=== PATIENT | male | born 1930 | race Caucasian/White ===

== ENCOUNTER → 2017-04-12 | Outpatient (CLI) | payer MEDICARE, BC ==
[~2017-04-12] MED LIST: ASPI81CH CHEW; FINA5TAB2 PO; ROSU20 PO; SYNT112T PO; TAMS5CAP PO; TEKT300T PO; VITA100064 PO; VITA500T4 PO
[2017-04-12 11:43] LABS: INTERNATIONAL NORMALIZED RATIO 0.9 RATIO; PROTHROMBIN TIME - PATIENT 10.4 SEC (9.8-11.6)
[2017-04-12 11:57] LABS: BICARBONATE 28.4 MEQ/L (21.0-32.0); POTASSIUM 4.7 MEQ/L (3.5-5.1)
[2017-04-12 13:02] LABS: BLOOD, URINE NEG (NEG); COMMENT (UR) CULT NOT INDICATED; CULTURE IF INDICATED CULT NOT INDICATED; GLUCOSE,URINE NEG (NEG); KETONE, URINE NEG (NEG); NITRITE,URINE NEG (NEG); URINE COLOR YELLOW (YELLW/STRAW)
== END ==
LOC: CPRE 10:07
PROVIDERS: ATTEND Orthopaedic Surgery
DX: Z01.810 Encounter for preprocedural cardiovascular examination (principal); Z01.811 Encounter for preprocedural respiratory examination; Z01.812 Encounter for preprocedural laboratory examination; S83.241D Other tear of medial meniscus, current injury, right knee, subsequent encounter; X58.XXXD Exposure to other specified factors, subsequent encounter
CPT/HCPCS: 36415; 80048; 81001; 85610

== ENCOUNTER → 2017-04-19 | Day surgery (SDC) | payer MEDICARE, BC ==
--- NOTE | 2017-04-11 12:25 | MH ---
cc: JOELTERRYVALDEMAR PARKER DATE OF ADMISSION: 04/19/2017 ADMITTING DIAGNOSES Medial meniscus tear of the right knee. Chondromalacia patellae right knee. Effusion right knee. Pain of the right knee. HISTORY The patient is an 86-year-old white male who presented to the office in February of this year complaining of bilateral knee pain of at least one months' duration. He had gotten up during the course of the night hours to use the bathroom and experienced a syncopal type episode resulting in him falling to the bathroom floor striking both knees against the edge of the toilet. He was able to arise thereafter and returned to bed. The following morning he was seen in the emergency room of [facility] where x-ray examination apparently was unremarkable for any acute bony abnormality. The patient was discharged home and shortly thereafter he experienced an episode of rectal bleeding for which she returned to the hospital and was admitted for further disposition. He underwent colonoscopy and was apparently diagnosed as having diverticulitis and did require several transfusions for his anemia. He was later seen by his primary care physician and at that time an MRI scan of both knees was completed and the patient was referred for orthopedic disposition. At the time of his initial office evaluation he described residual pain involving both knees being somewhat more pronounced on the right side. There had been no significant swelling or grinding-like sensation. He had been taking Aleve for pain management and had been accustomed to exercise activities which included lifting weights and walking. At the time of his original evaluation, a review of his MRI scan of the right knee demonstrated a horizontal tear involving the posterior horn and body of the medial meniscus with medial extrusion of a small portion of the meniscal structure. There was a bone contusion and subchondral posterior lateral tibial condyle fracture, small joint effusion and patellar chondromalacia. The MRI scan of his left knee did report an undersurface tear of the posterior horn and body of the medial meniscus and partial tearing of the medial retinaculum from the medial collateral ligament. Initial findings were reviewed and treatment options discussed. At that time the patient elected to continue with conservative management and was thereafter followed on an outpatient basis. He returned to the office in March reporting soreness involving both knees but definitely more pronounced about his right lower extremity. He tried to remain active during this interval of time but was aware of obvious limitations as related to his weightbearing routine. Once again findings and treatment options were reviewed. The pros and cons of continuing with conservative management versus operative intervention that would involve arthroscopic surgery were outlined in detail. Emphasis was made regarding the fact that the decision to proceed with surgery would be left entirely to the patient's discretion. The patient felt that his symptoms had progressed to a point in time where he was ready to proceed in this direction and in compliance with his wishes he is currently being admitted in order that arthroscopic surgery of his right knee be accomplished. PAST MEDICAL HISTORY, HOSPITALIZATIONS AND SURGERIES 1. Tonsillectomy. 2. Rotator cuff surgery of both shoulders. 3. Appendectomy. 4. Bilateral cataract excisions. 5. Colonoscopy. 6. Laparotomy with partial bowel resection for history of diverticulitis. 7. Cystoscopy. 8. Cardiac stent insertion. MEDICAL ILLNESSES 1. Hypertension. 2. elevated cholesterol. 3. Hypothyroidism. 4. Prostate disease. CURRENT MEDICATIONS 1. Lisinopril 20/12.5 daily. 2. Lovastatin 20 mg daily. 3. Levothyroxine 12.5 mg daily. 4. Finasteride 5 mg daily. 5. Tamsulosin 0.4 mg daily. 6. I-caps one daily. 7. Lutein daily. 8. One baby aspirin daily. 9. Vitamin D daily. 10. Vitamin B12 daily. ALLERGIES The patient denies any known drug allergies. 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 REVIEW OF SYSTEMS HEENT: He does wear glasses. Denies headache, seizure or syncope. Intermittent sinus congestion. No epistaxis. Diminished auditory acuity for which bilateral hearing aids are utilized. No tinnitus. No bleeding gums or dysphagia. RESPIRATORY: Denies cough, shortness of breath, upper respiratory infection, pneumonia or tuberculosis. No angina. CARDIOVASCULAR: He is medically managed for hypertension. GASTROINTESTINAL: His appetite is good. Bowel movements are regular. No hepatitis, gallbladder disease or ulcers. There is a positive history of hemorrhoids. GENITOURINARY: No urinary tract infection. No kidney stones. MUSCULOSKELETAL: Fractures of the left ankle and rib area treated nonoperatively. PSYCHIATRIC: No psychiatric illness. His remaining review of systems is unremarkable and noncontributory. FAMILY HISTORY The patient has been a for 7 years, his at 78 years of age with a history of pancreatic cancer. One son and one daughter both indicated to be in good health. One daughter 50 years of age secondary to illicit drug use. His family history is otherwise positive for heart disease, Alzheimer's disease and cancer. SOCIAL HISTORY The patient completed a high school education. 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 He denies active use of tobacco since 1963 but had been approximately a one-pack per day user for 14 years prior to that time. Ethanol consumption on social basis. PHYSICAL EXAMINATION VITAL SIGNS: Height 5 feet, 9 inches, weight 169 pounds. GENERAL: An alert, oriented and responsive 86-year-old white male who sits quietly upon the examination table in no obvious distress. HEAD, EYES, EARS, NOSE, AND THROAT: Pupils are equally round and reactive to light. Extraocular movements full. Sclerae clear. External nares clear. External auditory canals clear. Dental intact. Mucous membranes pink and moist. Pharynx clear. NECK: Supple. There is minimal discomfort at the extremes of motion indicated to be chronic in nature. Carotid pulse palpable bilaterally. Trachea midline. Thyroid without enlargement. LUNGS: Clear to auscultation and percussion. No CVA tenderness. No discomfort throughout the dorsolumbar spine. HEART: Grade 2/6 systolic murmur heard best at the right second intercostal space. ABDOMEN: Soft, nontender. Bowel sounds present. RECTAL: Per primary care physician. EXTREMITIES: Right Knee - There is a minimal fullness about the knee consistent with intraarticular effusion, medial joint line tenderness without palpable deformity. Apprehension and compression sign negative. Slight limitation of mobility at the extreme of flexion without significant crepitation associated. No collateral ligamentous instability. Sarah test and drawer sign negative. Pivot shift and Froy sign minimally positive for medial compartment pain. Straight-leg raising negative at 80 degrees. Independent gait. NEUROLOGIC: Cranial nerves II-XII grossly intact excluding diminished auditory acuity. IMPRESSION Medial meniscus tear of the right knee. Chondromalacia patellae right knee. Effusion right knee. Pain of the right knee PLAN Arthroscopic surgery and possible arthrotomy right knee. The nature of the planned surgical procedure, the potential complications and risks associated, the expectations of surgery and the consent form were thoroughly reviewed with the patient prior to his admission to the hospital. Mac has indicated his full understanding regarding all of the above and given consent to proceed with treatment as outlined. Medical evaluation and clearance for surgery will be completed by his primary care physician, Dr. Josh John. MD AMBROSE Braden/VINEET /11:24 AM /11:59 AM
[~2017-04-19] VITALS: Ht 175.3 cm; Wt 77.1 kg
[~2017-04-19] MED LIST changes: +ACETAMINOPHEN/HYDROcodone 325 MG/5 MG TAB PO PRN; +CHLORHEXIDINE GLUCONATE 2 % 1 PACK (2 CLOTHS) TOPICAL PRN; +DICLOFENAC SODIUM 37.5 MG/ML VIAL IV PUSH ONE; +DO NOT ADM ANY ANTICOAGULANT DRUGS PRN; +INSULIN HUMAN REGULAR 1,000 UNITS/10 ML VIAL SQ PRN; +LACTATED RINGER'S 1000 ML INJ 1,000 ML IV ONE; +LACTATED RINGER'S 1000 ML IV PRN; +LIDOCAINE HCL 2% 20 ML VIAL INFIL ONE; +METOPROLOL TARTRATE 25 MG TAB PO PRN; +MORPHINE SULFATE 8 MG/ML INJ IM PRN; +ONDANSETRON HCL 4 MG/2 ML VIAL IV PUSH ONE; +POVIDONE IODINE 5% (ANTISEPSIS KIT) 4 APPLICATIONS EACH NARE PRN; +POVIDONE IODINE 7.5% SCRUB 118 ML BOTTLE TOPICAL SCH; +PROMETHAZINE INJ 25 MG/ML VIAL IM PRN; +PROPOFOL 200 MG/20 ML AMP IV ONE; +SODIUM CHLORID 0.9% 500 ML IV PRN; +TRIAMCINOLONE ACETONIDE 40 MG/ML VIAL I-SYNOVIAL ONE; +ceFAZolin 2 GM PREMIX 50 ML IV SCH; +ceFAZolin 2 GM PREMIX 50 ML ONE; +ePHEDrine/NS 25 MG/5 ML SYR IV ONE
[2017-04-19 07:12] VITALS: BP 142/77; PULSE 60; RESP 16; TEMP 98.1; O2SAT 99
--- NOTE | 2017-04-19 07:18 | RADRPT ---
EXAM DATE/TIME: 04/19/2017 06:40 [facility] COMPARISON: No previous studies available for comparison. INDICATIONS : Preoperative chest X-ray. MEDICAL HISTORY : None. SURGICAL HISTORY : None. ENCOUNTER: Initial ACUITY: 1 day PAIN SCORE: 0/10 LOCATION: Bilateral chest FINDINGS: A single view of the chest demonstrates the lungs to be symmetrically aerated without evidence of mas s, infiltrate or effusion. The cardiomediastinal contours are unremarkable. Mild atherosclerotic ch anges are present in the aorta. Osseous structures are intact. CONCLUSION: No acute disease. Mitesh Neal MD on April 19, 2017 at 7:16 Board Certified Radiologist. This report was verified electronically.
[2017-04-19 11:25] VITALS: BP 116/65; PULSE 67; RESP 20; TEMP 97; O2SAT 97
--- NOTE | 2017-04-19 13:36 | MP ---
cc: VALDEMAR WAN M.D. DATE OF SURGERY 04/19/2017 PREOPERATIVE DIAGNOSIS Medial meniscus tear of the right knee, chondromalacia patellae right knee, effusion right knee and pain of the right knee. POSTOPERATIVE DIAGNOSIS Medial meniscus tear of the right knee, chondromalacia patellae right knee, effusion right knee and pain of the right knee including lateral meniscus tear of the right knee. PROCEDURE Partial medial and lateral meniscectomy of the right knee, chondroplasty patellofemoral joint. SURGEON Valdemar Wan MD ANESTHESIA General by LMA FORMAT Following the induction of satisfactory general anesthesia by LMA insertion as completed per the Department of Anesthesia, examination of the right knee revealed a satisfactory range of motion with no appreciable ligamentous instability. The extremity proper was positioned in the manager surgical knee palacios, prepped with Betadine solution and draped into a sterile field in the routine manner. Prior to initiation of the actual procedure, the standard time-out protocol was completed. All parameters were appropriately addressed and confirmed by operating room personnel. Arthroscopic instrumentation was introduced through a stab wound utilizing cannula with sharp and blunt trocar, the inflow irrigation by way of the medial suprapatellar portal. The arthroscope through a lateral parapatellar portal. A probe through the medial parapatellar portal. Examination of the suprapatellar pouch revealed minimal reactive synovitis. There was obvious articular irregularity of the patellofemoral joint consistent with localized chondromalacia. Within the medial compartment, a degenerative tear involving the body and posterior horn of the medial meniscus was identified and minimal articular irregularity along the adjacent surface of the femoral condyle. The anterior cruciate ligament was identified and noted to be intact. Within the lateral compartment, a secondary tear of the lateral meniscus primarily involving the body and the early portion of the posterior horn region was readily identified. Utilizing a 4.0 saber tooth resector, a partial medial and lateral meniscectomy was accomplished where after the shaver was oriented into the suprapatellar pouch where the patellofemoral articulation was debrided in a chondroplasty type manner. Upon completion of same, the joint space was thoroughly lavaged and suctioned dry and an intra-articular Kenalog/lidocaine injection was completed. The portal sites were reapproximated with Steri-Strips over which Xeroform gauze and a bulky dry sterile dressing were placed. Anesthesia was discontinued and the patient thus transferred to a hospital stretcher and returned to recovery room in satisfactory condition having tolerated his operative procedure well. Estimated blood loss was less than 5 cc. MD AMBROSE Braden/VEENA /10:03 AM /1:27 PM
== END | disposition home or self-care (01) ==
LOC: HSDC 06:23 → EDUNIT# 09:00
PROVIDERS: ATTEND Orthopaedic Surgery
DX: S83.241A Other tear of medial meniscus, current injury, right knee, initial encounter (principal); S83.281A Other tear of lateral meniscus, current injury, right knee, initial encounter; M22.41 Chondromalacia patellae, right knee; M65.9 Synovitis and tenosynovitis, unspecified; I10 Essential (primary) hypertension; E78.00 Pure hypercholesterolemia, unspecified; E03.9 Hypothyroidism, unspecified; N42.9 Disorder of prostate, unspecified; Z95.5 Presence of coronary angioplasty implant and graft
CPT/HCPCS: 01400; 29880; 71010; J0690; J1130; J2405; J3010; J3301; J7120